=== PATIENT | male | born 1955 | race Hispanic/Latino ===

== ENCOUNTER 2017-07-03 23:29 | Emergency (ER) | payer BC ==
[2017-07-04 01:54] LABS: Basophils % (Auto) 0.3 % (0.0-1.8); Eosinophils % (Auto) 0.8 % (0.0-4.3); Hematocrit 41.5 % (35.5-45.6); Hemoglobin 14.1 gm/dl (11.8-15.2); Mean Corpuscular HGB Conc 34 % (32-34); Mean Corpuscular Hemoglobin 30 pg (28-32); Mean Corpuscular Volume 87 fl (84-94); Platelet Count 213 K/mm3 (140-440); Red Blood Count 4.74 M/mm3 (3.65-5.03); Red Cell Distribution Width 14.6 % (13.2-15.2)
[2017-07-04] MEDS ORDERED: AFRIN NS ONE ×2 (06:11→07:47)
--- NOTE | 2017-07-04 06:54 | Emergency Department Report ---
ED General Adult HPI - General Chief complaint: Nosebleed Stated complaint: NOSE BLEED Time Seen by Provider: 07/04/17 06:02 Source: patient Mode of arrival: Ambulatory Limitations: No Limitations - History of Present Illness Initial comments: Oskar is a 61-year-old male past history of a deviated nasal septum who presents with epistaxis that has occurred since 7 PM this evening. He states that his nasal pain is a 1 out 10 poking his nose makes it worse nothing makes it better the symptoms of his bleeding are moderate. Patient denies being on any blood thinners the pain does not radiate any where. Patient states that he has had surgery performed on his nose by an ENT and he's had nasal bleeds before. Patient's bleeding from his nose is moderate. Onset of his symptoms were sudden he has only tried placing pressure on his nose to stop the bleeding. The bleeding is coming from the left nostril. - Related Data Allergies Allergy/AdvReac Type Severity Reaction Status Date / Time No Known Allergies Allergy Verified 07/04/17 00:38 ED Review of Systems ROS: Stated complaint: NOSE BLEED Other details as noted in HPI Constitutional: denies: chills, fever Eyes: denies: eye pain, eye discharge, vision change ENT: epistaxis Respiratory: denies: cough, shortness of breath, wheezing Cardiovascular: denies: chest pain, palpitations Endocrine: no symptoms reported Gastrointestinal: denies: abdominal pain, nausea, diarrhea Genitourinary: denies: urgency, dysuria Musculoskeletal: denies: back pain, joint swelling, arthralgia Skin: denies: rash, lesions Neurological: denies: headache, weakness, paresthesias Psychiatric: denies: anxiety, depression Hematological/Lymphatic: denies: easy bleeding, easy bruising ED Past Medical Hx - Past Medical History Previous Medical History?: No - Surgical History Past Surgical History?: Yes Additional Surgical History: deviated septum - Social History Smoking Status: Never Smoker Substance Use Type: None ED Physical Exam - General Limitations: No Limitations General appearance: alert, in no apparent distress - Head Head exam: Present: atraumatic, normocephalic - Eye Eye exam: Present: normal appearance - ENT ENT exam: Present: mucous membranes moist - Expanded ENT Exam Expanded Ear exam: Present: other (left nostril bleeding) - Neck Neck exam: Present: normal inspection - Respiratory Respiratory exam: Present: normal lung sounds bilaterally. Absent: respiratory distress - Cardiovascular Cardiovascular Exam: Present: regular rate, normal rhythm. Absent: systolic murmur, diastolic murmur, rubs, gallop - GI/Abdominal GI/Abdominal exam: Present: soft, normal bowel sounds - Rectal Rectal exam: Present: deferred - Extremities Exam Extremities exam: Present: normal inspection - Back Exam Back exam: Present: normal inspection - Neurological Exam Neurological exam: Present: alert, oriented X3 - Psychiatric Psychiatric exam: Present: normal affect, normal mood - Skin Skin exam: Present: warm, dry, intact, normal color. Absent: rash ED Course Vital Signs 07/04/17 07/04/17 00:38 07:22 Temperature 97.8 F Pulse Rate 87 85 Respiratory 16 97 H Rate Blood Pressure 154/98 Blood Pressure 158/93 [Left] O2 Sat by Pulse 95 97 Oximetry - Reevaluation(s) Reevaluation #1: 07/04/17 06:57 PAC patient's left nostril with sterile gauze soaked in Afrin and placed pressure on patient's nostril for 10 minutes. Reevaluation #2: 07/04/17 07:48 Patient has no nosebleed. After packing patient has no pain I we'll send patient home to follow-up with his ENT doctor tomorrow. - Procedure Description Procedures done: Epistaxis packing timeout performed patient was placed in the sitting position with head towards the teofilo. A sterile gauze was soaked with Afrin and packed into his left nostril. Afterwards nasal pressure was with pressure device for the last 30 minutes. Estimated amount blood loss 10 mL. Patient tolerated the procedure well with no complications. ED Medical Decision Making - Lab Data Result diagrams: 07/04/17 01:21 Lab Results 07/04/17 07/04/17 Range/Units 01:20 01:21 WBC 12.0 H (4.5-11.0) K/mm3 RBC 4.74 (3.65-5.03) M/mm3 Hgb 14.1 (11.8-15.2) gm/dl Hct 41.5 (35.5-45.6) % MCV 87 (84-94) fl MCH 30 (28-32) pg MCHC 34 (32-34) % RDW 14.6 (13.2-15.2) % Plt Count 213 (140-440) K/mm3 Lymph % (Auto) 12.0 L (13.4-35.0) % [place] % (Auto) 7.0 (0.0-7.3) % Eos % (Auto) 0.8 (0.0-4.3) % Baso % (Auto) 0.3 (0.0-1.8) % Lymph # 1.4 (1.2-5.4) K/mm3 Weak[place] # 0.8 (0.0-0.8) K/mm3 Eos # 0.1 (0.0-0.4) K/mm3 Baso # 0.0 (0.0-0.1) K/mm3 Seg Neutrophils % 79.9 H (40.0-70.0) % Seg Neutrophils # 9.6 H (1.8-7.7) K/mm3 Blood Type A POSITIVE Antibody Screen Negative - Medical Decision Making Chief medical diagnosis: Anterior epistaxis Differential medical diagnosis: Posterior epistaxis, Foriegn body, nasal trauma I will get CBC, type and screen and I will give patient Afrin. Anterior packing was performed of the patient's left nostril he tolerated the procedure well. I will send patient home with Afrin and for him to follow-up with his ENT doctor on Wednesday. Gave patient return precautions come back to the emergency department he agrees with discharge. Additional verbal discharge instructions were given. Critical care attestation.: If time is entered above; I have spent that time in minutes in the direct care of this critically ill patient, excluding procedure time. ED Disposition Clinical Impression: Acute anterior epistaxis Disposition: - TO HOME OR SELFCARE Is pt being admited?: No Does the pt Need Aspirin: No Condition: Stable Instructions: Epistaxis (ED) Additional Instructions: Follow-up with your ears nose and throat doctor in [place] on Wednesday. Referrals: PRIMARY CARE, [Primary Care Provider] - 3-5 Days Time of Disposition: 07:49
[2017-07-04 07:24] VITALS: BP 158/93
== END 2017-07-04 08:23 | disposition home or self-care (01) ==
LOC: ED 23:29
DX: R04.0 Epistaxis (principal)
CPT/HCPCS: 36415; 85025; 86850; 86900; 86901